=== PATIENT | female | born 1990 | race African-American/Black ===

== ENCOUNTER 2020-11-25 19:55 | Inpatient (IN) | payer BC, OTHER, SELFPAY ==
[2020-11-25] VITALS (47 sets, daily range): BP systolic 88–128; BP diastolic 45–85; PULSE 60–159; TEMP 37–37.1; O2SAT 97–100; BMI 32.8
[2020-11-25] MEDS: LACTATED RINGERS 1,000 ML 125 ML IV CONT ×3 (21:02→23:13)
[2020-11-25 21:12] LABS: Basophils Percent Auto 0.2 % (0.2-1.2); Eosinophils Percent Auto 0.5 % (0-4.4); Hematocrit 37.7 % (37.0-47.0); Hemoglobin 12.9 g/dL (12.0-15.0); Immature Granulocyte Absolute 0.04 K/mm3 (0.00-0.031); Immature Granulocyte Percent A 0.5 % (0-0.5); Mean Corpuscular HGB Conc 34.2 g/dl (32-36); Mean Corpuscular Hemoglobin 31.7 pg (26-34); Mean Corpuscular Volume 92.6 fl (80-100); Mean Platelet Volume 8.9 fl (7.4-10.4); Monocytes Absolute Auto 0.5 K/mm3 (0.1-0.6); Monocytes Percent Auto 6.3 % (2.6-8.5); Neutrophils Absolute Auto 6.1 K/mm3 (1.3-6.7); Neutrophils Percent Auto 71.5 % (45.5-73.1); Platelet Count Result 272 k/mm3 (150-375); Red Blood Count 4.07 M/mm3 (4.2-5.4); Red Cell Distribution Width 13.4 % (11.5-14.5); White Blood Count 8.6 K/mm3 (4.5-10.0)
[2020-11-25] MEDS: fentaNYL CITRATE INJ (*CRX) 100 MCG/2 ML VIAL 50 MCG IV PUSH (21:47)
--- NOTE | 2020-11-25 21:58 | WPDANESEPP ---
Anes - Eval Pre Procedure Procedure: Labor epidural Date/Time: 11/25/20 21:58 Surgeon: Mimi Preop Diagnosis: Abd pain with contractions Pre Op Diagnosis: CXN Patient Data Age: 30 Gender: F Height: 5 ft 3 in Weight: 84 kg Last Vital Signs Pulse 86 11/25/20 21:46 BP 120/71 11/25/20 21:46 Allergies Allergy/AdvReac Type Severity Reaction Status Date / Time No Known Allergies Allergy Verified 11/06/20 15:32 Home Medications Medication Instructions Recorded Confirmed Type Vitamin D2 11/06/20 History docusate sodium [Colace] 100 mg PO DAILY 11/06/20 11/06/20 History ferrous sulfate 11/06/20 History prenat.vits,jill,cye-ihfe-bumya 1 tablet PO DAILY 11/06/20 11/06/20 History [ #2] valacyclovir [Valtrex] 500 mg PO DAILY 11/06/20 11/06/20 History Laboratory Tests 11/25/20 11/25/20 11/25/20 21:00 21:00 21:00 WBC 8.6 K/mm3 K/mm3 (4.5-10.0) RBC 4.07 M/mm3 L M/mm3 (4.2-5.4) Hgb 12.9 g/dL g/dL (12.0-15.0) Hct 37.7 % % (37.0-47.0) MCV 92.6 fl fl (80-100) MCH 31.7 pg pg (26-34) MCHC 34.2 g/dl g/dl (32-36) RDW 13.4 % % (11.5-14.5) Plt Count 272 k/mm3 k/mm3 (150-375) MPV 8.9 fl fl (7.4-10.4) Immature Gran % (Auto) 0.5 % % (0-0.5) Neut % (Auto) 71.5 % % (45.5-73.1) Lymph % (Auto) 21.0 % % (18.3-44.2) [place] % (Auto) 6.3 % % (2.6-8.5) Eos % (Auto) 0.5 % % (0-4.4) Baso % (Auto) 0.2 % % (0.2-1.2) Lymph # (Auto) 1.80 K/mm3 K/mm3 (0.9-3.2) [place] # (Auto) 0.5 K/mm3 K/mm3 (0.1-0.6) Eos # (Auto) 0.0 K/mm3 K/mm3 (0-0.3) Baso # (Auto) 0.0 K/mm3 K/mm3 (0.0-0.1) Abs Immat Gran (auto) 0.04 K/mm3 H K/mm3 (0.00-0.031) Absolute Neuts (auto) 6.1 K/mm3 K/mm3 (1.3-6.7) Absolute Nucleated RBC 0.0 K/mm3 K/mm3 (0.0-0.012) Nucleated RBC % 0.0 % % (0.0-0.2) RPR Pending Blood Type Pending Antibody Screen Pending Patient hx anesthesia problems: none Family hx anesthesia problems: none PMFSH Past Medical History Medical History History of smoking Overweight (BMI 25.0-29.9) and not yet delivered Family History Family History Mother GERD (gastroesophageal reflux disease) Hypertension Grandparent Hypertension Social History Social History Years smoked: 9 Smoking status: Former smoker Tobacco type: cigarettes Smoking end date: 03/21/20 Substance use: never Spiritual care concerns: No Exam Day of Procedure 11/25/20 21:58 Patient weight: overweight Airway: Mallampati scale class II Neurological: alert and oriented
--- NOTE | 2020-11-25 23:40 | PM.IMHP ---
H&P: HPI History of Present Illness Date/Time: 11/25/20 23:40 Chief Complaint: contractions Narrative: Geraldine Lee is a 30 year old female @ 39 weeks presented to Labor and delivery with contractions and spontaneous rupture membranes with meconium stained fluid. complicated by prior csection and incompetent cervix s/p a cerclage. Internal monitors were placed. Patient had decel with lates. [facility] Past Medical History Medical History (Updated 11/25/20 @ 23:47 by Magdiel Le MD) History of smoking Non-reassuring heart tones complicating , antepartum Overweight (BMI 25.0-29.9) and not yet delivered Surgical History Surgical History (Updated 11/25/20 @ 23:47 by Magdiel Le MD) Desires (vaginal after ) trial Family History Family History Mother GERD (gastroesophageal reflux disease) Hypertension Grandparent Hypertension Social History Social History Years smoked: 9 Smoking status: Former smoker Tobacco type: cigarettes Smoking end date: 03/21/20 Substance use: never Spiritual care concerns: No Meds Home Medications and Allergies Home Medications Medication Instructions Recorded Confirmed Type Vitamin D2 11/06/20 History docusate sodium [Colace] 100 mg PO DAILY 11/06/20 11/06/20 History ferrous sulfate 11/06/20 History prenat.vits,jill,ymi-dmsg-vjdgz 1 tablet PO DAILY 11/06/20 11/06/20 History [ #2] valacyclovir [Valtrex] 500 mg PO DAILY 11/06/20 11/06/20 History Allergies Allergy/AdvReac Type Severity Reaction Status Date / Time No Known Allergies Allergy Verified 11/06/20 15:32 Vital Signs Vital Signs - 24 hr 11/25/20 20:16 11/25/20 20:31 11/25/20 20:46 Pulse Rate 76 84 83 Blood Pressure 110/59 L 109/64 114/72 Pulse Oximetry 11/25/20 21:01 11/25/20 21:31 11/25/20 21:46 Pulse Rate 71 60 86 Blood Pressure 92/76 L 95/67 L 120/71 Pulse Oximetry 11/25/20 22:00 11/25/20 22:01 11/25/20 22:05 Pulse Rate 77 Blood Pressure 128/85 Pulse Oximetry 99 100 11/25/20 22:07 11/25/20 22:08 11/25/20 22:09 Pulse Rate 78 81 75 Blood Pressure 118/71 108/79 112/68 Pulse Oximetry 11/25/20 22:10 11/25/20 22:11 11/25/20 22:13 Pulse Rate 78 82 Blood Pressure 111/67 116/80 Pulse Oximetry 100 11/25/20 22:15 11/25/20 22:17 11/25/20 22:19 Pulse Rate 74 70 70 Blood Pressure 114/62 111/54 L 101/56 L Pulse Oximetry 100 11/25/20 22:20 11/25/20 22:21 11/25/20 22:23 Pulse Rate 78 77 Blood Pressure 111/53 L 101/52 L Pulse Oximetry 100 11/25/20 22:25 11/25/20 22:27 11/25/20 22:29 Pulse Rate 83 81 83 Blood Pressure 106/65 111/54 L 104/58 L Pulse Oximetry 100 11/25/20 22:30 11/25/20 22:31 11/25/20 22:34 Pulse Rate 69 90 Blood Pressure 100/52 L 98/48 L Pulse Oximetry 100 11/25/20 22:35 11/25/20 22:37 11/25/20 22:39 Pulse Rate 71 70 70 Blood Pressure 98/49 L 106/62 109/45 L Pulse Oximetry 100 11/25/20 22:40 11/25/20 22:45 11/25/20 22:46 Pulse Rate 159 H Blood Pressure 110/70 Pulse Oximetry 100 100 11/25/20 22:50 11/25/20 22:55 11/25/20 23:00 Pulse Rate Blood Pressure Pulse Oximetry 100 100 99 11/25/20 23:01 11/25/20 23:05 11/25/20 23:10 Pulse Rate 68 Blood Pressure 109/63 Pulse Oximetry 100 98 11/25/20 23:15 11/25/20 23:16 11/25/20 23:20 Pulse Rate 68 Blood Pressure 111/65 Pulse Oximetry 100 99 11/25/20 23:25 11/25/20 23:27 11/25/20 23:31 Pulse Rate 81 Blood Pressure 88/57 L Pulse Oximetry 100 97 11/25/20 23:32 11/25/20 23:37 Pulse Rate Blood Pressure Pulse Oximetry 99 100 Exam GI: Other: soft and gravid heart tones 140 reactive with moderate variability decels x 5 mins to 90s with return to baseline. cervix 5 cm/70/-2 vertex H&P: Resu
[2020-11-25] MEDS: ceFAZolin 2 GM/D5W 50 ML 2 GM/50 ML BAG IVPB (23:55)
[2020-11-26] VITALS (53 sets, daily range): BP systolic 83–189; BP diastolic 41–137; PULSE 60–240; RESP 12–18; TEMP 36.3–36.8; O2SAT 89–100
--- NOTE | 2020-11-26 00:50 | PM.OBPRVD ---
OB - Delivery Note Procedure Delivery date: 11/26/20 Procedure: Procedures Operation Date: 11/25/20 23:40 <No data on this case meets the specified criteria> events: Previous and Meconium Stained Fluid Intrapartal events: Ceph-Pelvic Disproportion, Intolerance and Deceleration Delivery monitor: external FHT, external uterine, internal FHT and internal uterine Route of delivery: Quantitative Blood Loss (ml): 380 Anesthesia type: Epidural Disposition: PACU Baby Date of : 11/26/20 Weeks of gestation at delivery: 38 gender: Male presentation: vertex position: Right Occiput Posterior Placenta delivery description: Spontaneous cord vessel description: 3 Vessels score one minute: 8 score five minutes: 9
--- NOTE | 2020-11-26 00:54 | PM.PROC ---
Procedure Note - Detailed Date of procedure: 11/26/20 Pre-op diagnosis: CXN Post-op diagnosis: other (NRFHT) Procedure performed: rltcs Description of procedure: Patient was taken to the operating room with IV running. She was prepped and draped in a normal sterile fashion after epidural was found to be adequate. A Pfannenstiel skin incision was made with a scalpel carried down to the underlying layer of fascia. The fascial incision was then extended bilaterally with Fang scissors. The superior aspect of the incision was grasped with Olya clamps elevated and dissected off the rectus muscles. The inferior aspect of the incision was grasped with Olya clamps elevated and dissected off the rectus muscles. The rectus muscles were in the midline prior to proceeding to the peritoneum there was a rectal area bleeding that was suture ligated with 0 Vicryl suture. The peritoneum was entered bluntly bladder blade was inserted vesicouterine peritoneum was grasped with the PK and entered sharply with the Metzenbaum scissors and the bladder flap was created digitally. Bladder blade was reinserted and lower uterine segment was incised with a transverse fashion with the scalpel. head was delivered atraumatically the remainder of the fetus was delivered the cord was clamped and cut. and the fetus was handed off to the waiting nurse. Cord blood and cord gases were obtained. The placenta delivered spontaneously. The uterus was exteriorized and cleared of all clots and debris. Uterine incision was closed 0 Monocryl in a running locked fashion a 2nd layer the same suture was used to imbricate this incision on the patient's right corner of the incision and a [id number] stitch was placed for hemostasis. The uterus was returned to the abdomen the gutters were cleared of all clots and debris and irrigated copiously. The uterine incision was covered in Interceed and T fashion. The muscles were re-examined for hemostasis the fascia was closed with 0-Vicryl in a running fashion. Subcutaneous tissue was irrigated and closed with 0 plain gut and the skin was closed with 4-0 Vicryl on a Kenneth needle patient received precancer Ancef prior to skin incision. Anesthesia: spinal Surgeon: Magdiel Le MD Estimated blood loss (mL): 380 Urine output (mL): 200 Drains: Yes Packing: No Pathology: yes Complications: None Condition: stable Disposition: PACU Findings: male in vertex ROP meconium stained fluid.
[2020-11-26] MEDS: KETOROLAC 30 MG/ML VIAL (*BKC) IV PUSH (01:59)
[2020-11-26] MEDS: OXYTOCIN 30 UNITS/NS 500 ML 30 UNITS/500 ML BAG 125 UNITS IV CONT (02:03)
[2020-11-26] MEDS: fentaNYL CITRATE INJ (*CRX) 100 MCG/2 ML VIAL 25 MCG IV PUSH (02:40)
[2020-11-26] MEDS: HYDROcodone/acetaminophen (*CRX) 5-325 MG TABLET 1 TAB PO (03:59)
[2020-11-26] MEDS: KCL 20 MEQ/D5/0.45% SOD CHL 1,000 ML 125 ML IV CONT (06:35)
--- NOTE | 2020-11-26 07:13 | WPDANLDPN2 ---
Anes-Prog Note L&D Date/Time: 11/26/20 07:13 Comfortable throughout: section Neuraxial method: epidural Epidural/Spinal procedure site: clean & non-tender Neuro status: Neuro function grossly intact. patient has yet to get up to walk. moving all extremities with no deficits. Cardiovascular status: normal Respiratory status: normal Airway patency: baseline Mental status: baseline Post-Op hydration status: normal (catheter still in place) Vital Signs: Last Vital Signs Temp 36.5 C 11/26/20 06:04 Pulse 67 11/26/20 06:04 Resp 16 11/26/20 06:04 BP 114/68 11/26/20 06:04 Pulse Ox 100 11/26/20 06:04 Pain score (VAS): 3 I/O: Intake & Output 11/25/20 11/25/20 11/26/20 15:59 23:59 07:59 Intake Total 2000 Output Total 405 Balance 2000 -405 Post-procedural complaints: none Patient feedback: Patient satisfied with anesthetic care.
--- NOTE | 2020-11-26 07:15 | WPDANLDNPN2 ---
Anes-Prog Note L&D-Neuraxial Date/Time: 11/26/20 07:15 Neuraxial medications: epidural PF morphine Opiod-related complaints: none Patient feedback: Patient satisfied with post-operative pain management.
[2020-11-26] MEDS: HYDROcodone/acetaminophen (*CRX) 10-325 MG TABLET 1 TAB PO ×4 (07:16→20:42)
[2020-11-26 09:12] LABS: Rapid Plasma Reagin Non-Reactive (NonReactive)
[2020-11-26] MEDS: MULTIVIT/MIN/PREN/FOL AC/IRON TABLET 1 TAB PO (10:41)
[2020-11-26] MEDS: valACYclovir HCL 500 MG TABLET PO (10:41)
[2020-11-26] MEDS: DOCUSATE SODIUM 100 MG CAPSULE PO ×2 (10:42→18:04)
--- NOTE | 2020-11-26 11:00 | PC.NURSE ---
Consulted with patient, reviewed feeding cues, frequencies, duration of feedings, feeding elimination flow sheet, and signs of adequate intake. Demonstrated stimulation techniques to wake for feeding. Assisted with to breast. Reviewed positioning/alignment, holding breast and asymmetrical latch on. was able to latch correctly. Infant nursed eagerly, with steady draws and frequent swallowing noted. Reviewed signs of a correct latch, effective nursing and suck swallow ratio. was able to maintain latch without discomfort to mother. Nipple care reviewed. Instructed mother to call out for RN assistance if she is unable to latch for feeding or she has discomfort with nursing. Instructed feeding should be initiated three hours from start of last feeding or if feeding cues are noted before. Mother voiced understanding of information shared.
[2020-11-26] MEDS: IBUPROFEN 600 MG TABLET PO ×2 (14:50→20:42)
[2020-11-27] MEDS: HYDROcodone/acetaminophen (*CRX) 10-325 MG TABLET 1 TAB PO ×4 (00:33→14:13)
[2020-11-27] MEDS: IBUPROFEN 600 MG TABLET PO ×3 (04:00→18:44)
[2020-11-27 05:14] LABS: Basophils Percent Auto 0.3 % (0.2-1.2); Eosinophils Absolute Auto 0.1 K/mm3 (0-0.3); Eosinophils Percent Auto 0.8 % (0-4.4); Hematocrit 35.9 % (37.0-47.0); Immature Granulocyte Absolute 0.06 K/mm3 (0.00-0.031); Immature Granulocyte Percent A 0.5 % (0-0.5); Lymphocytes Absolute Auto 2.16 K/mm3 (0.9-3.2); Lymphocytes Percent Auto 18.4 % (18.3-44.2); Mean Corpuscular HGB Conc 33.4 g/dl (32-36); Mean Corpuscular Hemoglobin 31.9 pg (26-34); Mean Corpuscular Volume 95.5 fl (80-100); Mean Platelet Volume 8.7 fl (7.4-10.4); Monocytes Absolute Auto 0.8 K/mm3 (0.1-0.6); Monocytes Percent Auto 6.9 % (2.6-8.5); Neutrophils Absolute Auto 8.6 K/mm3 (1.3-6.7); Neutrophils Percent Auto 73.1 % (45.5-73.1); Platelet Count Result 239 k/mm3 (150-375); Red Blood Count 3.76 M/mm3 (4.2-5.4); Red Cell Distribution Width 13.6 % (11.5-14.5); White Blood Count 11.7 K/mm3 (4.5-10.0)
--- NOTE | 2020-11-27 05:18 | PM.OBPNVD ---
OB - PN: Subj Subjective Date/time seen: 11/27/20 05:18 Patient comments: no complaints and pain well controlled baby status: doing well OB - PN: Obj Data Labs CBC & Chem 7: 11/25/20 21:00 Labs: Laboratory Results - last 24 hr 11/25/20 21:00 RPR Non-reactive OB - PN A/P Plan day: 1 Plan: routine care Time Spent With Patient Time: Total time spent is greater than 50% in coordination of care (as documented) at patient's floor/unit and/or counseling patient: Exam Narrative: Exam Narrative: inc c/d/i : Bimanual exam- vagina & uterus: other (Uterus firm, nt @U)
[2020-11-27] MEDS: DOCUSATE SODIUM 100 MG CAPSULE PO ×2 (07:29→18:44)
[2020-11-27] MEDS: MULTIVIT/MIN/PREN/FOL AC/IRON TABLET 1 TAB PO (07:29)
[2020-11-27] MEDS: valACYclovir HCL 500 MG TABLET PO (07:29)
[2020-11-27 09:20] VITALS: BP 90/49; PULSE 78; RESP 18; TEMP 36.7; O2SAT 95
[2020-11-27] MEDS: HYDROcodone/acetaminophen (*CRX) 5-325 MG TABLET 1 TAB PO ×3 (11:06→22:40)
[2020-11-27 20:20] VITALS: BP 125/75; PULSE 93; RESP 18; TEMP 36.9; O2SAT 98
[2020-11-28] MEDS: HYDROcodone/acetaminophen (*CRX) 10-325 MG TABLET 1 TAB PO ×3 (02:16→18:03)
[2020-11-28] MEDS: IBUPROFEN 600 MG TABLET PO ×3 (05:35→22:19)
[2020-11-28] MEDS: HYDROcodone/acetaminophen (*CRX) 5-325 MG TABLET 1 TAB PO ×3 (05:35→22:19)
[2020-11-28 07:40] VITALS: BP 102/60; PULSE 84; RESP 18; TEMP 37.1; O2SAT 99
[2020-11-28] MEDS: valACYclovir HCL 500 MG TABLET PO (09:36)
[2020-11-28] MEDS: DOCUSATE SODIUM 100 MG CAPSULE PO ×2 (09:36→18:03)
[2020-11-28] MEDS: MULTIVIT/MIN/PREN/FOL AC/IRON TABLET 1 TAB PO (09:36)
[2020-11-28] MEDS: SIMETHICONE 80 MG TAB.CHEW PO (14:43)
--- NOTE | 2020-11-28 18:27 | PM.OBPNVD ---
OB - PN: Subj Subjective Date/time seen: 11/28/20 18:27 doing okay no complaints OB - PN: Obj Data Labs CBC & Chem 7: 11/27/20 05:00 OB - PN A/P Assessment and Plan (1) S/P repeat low transverse : Code(s): Z98.891 - History of uterine scar from previous surgery Status: Acute Assessment and Plan: continue with pp care. Time Spent With Patient Time: Total time spent is greater than 50% in coordination of care (as documented) at patient's floor/unit and/or counseling patient: Exam GI: Other: inc c/d/i ff below umbilicus
[2020-11-28 19:55] VITALS: BP 100/60; PULSE 86; RESP 16; TEMP 36.3; O2SAT 97
[2020-11-29] MEDS: HYDROcodone/acetaminophen (*CRX) 10-325 MG TABLET 1 TAB PO (05:16)
--- NOTE | 2020-11-29 06:40 | PM.OBPNVD ---
OB - PN: Subj Subjective Date/time seen: 11/29/20 06:40 patient reports legs a little heavy otherwise okay pain controlled. OB - PN: Obj Data Labs CBC & Chem 7: 11/27/20 05:00 OB - PN A/P Assessment and Plan (1) S/P repeat low transverse : Code(s): Z98.891 - History of uterine scar from previous surgery Status: Acute Assessment and Plan: d/c home. Time Spent With Patient Time: Total time spent is greater than 50% in coordination of care (as documented) at patient's floor/unit and/or counseling patient: Exam GI: Other: ff below umbilicus
--- NOTE | 2020-11-29 06:43 | PM.OBDSVD ---
DS: Admitting Diagnosis Admitting Diagnosis Admitting Diagnosis: labor OB - DS: Summary OB Procedures : Cerclage and Ultrasound OB Procedures Intrapartum: OB Procedures: : None Peripartum Data Procedures: Procedures Operation Date: 11/25/20 23:40 Actual Procedures Side Surgeon p Section Magdiel Le MD Time Spent with Patient Time attestation: Total time spent providing and/or coordinating discharge services: DS: Data Data Completed and Pending Completed studies during hospitalization: Pending at discharge 11/26/20 00:11 Surgical [PTH] Routine Discharge Plan Discharge Attending physician on discharge: Magdiel Le Discharging Clinician: Magdile Le Patient Disposition: Home, Self-Care Activity: may shower and pelvic rest Diet: regular Wound Care Instructions: incision open to air Patient Instructions: Antibiotic Form Stand Alone Forms: General Discharge Information Follow-up/Referrals: Magdiel Le MD [Physician] - Discharge Medications: New hydrocodone-acetaminophen 5-325 mg Tablet 1 tablet PO Q3H PRN (Reason: Moderate Pain (4-6)) Qty: 20 RF: 0 Continued valacyclovir [Valtrex] 500 mg Tablet 500 mg PO DAILY RF: 0 docusate sodium [Colace] 100 mg Capsule 100 mg PO DAILY RF: 0 #2 Tablet 1 tablet PO DAILY RF: 0 ferrous sulfate RF: 0 Discontinued Vitamin D2 RF: 0 Date of admission: 11/25/20 19:55 Primary Care Provider: Cheo,Kallie Admitting Provider: Magdiel Le Attending physician on admission: Magdiel Le Condition: Stable
[2020-11-29 09:00] VITALS: BP 115/67; PULSE 77; RESP 18; TEMP 37.1; O2SAT 100
[2020-11-29] MEDS: MULTIVIT/MIN/PREN/FOL AC/IRON TABLET 1 TAB PO (09:27)
[2020-11-29] MEDS: IBUPROFEN 600 MG TABLET PO (09:27)
[2020-11-29] MEDS: DOCUSATE SODIUM 100 MG CAPSULE PO (09:27)
[2020-11-29] MEDS: valACYclovir HCL 500 MG TABLET PO (09:27)
[2020-11-29] MEDS: HYDROcodone/acetaminophen (*CRX) 5-325 MG TABLET 1 TAB PO (09:28)
[2020-11-30 09:55] VITALS: BP 108/74; PULSE 72; RESP 20; TEMP 37; O2SAT 100
== END 2020-11-29 10:57 | disposition home or self-care (01) | DRG 787 ==
LOC: ANHLDR 23:19 → ANHOB2 11-26 03:10
PROVIDERS: Admitting Provider Obstetrics & Gynecology; PCP Family Medicine; Visit Provider Obstetrics & Gynecology
PROC: (CPT 59514; principal; 2020-11-25 23:40)
DX: O34.211 Maternal care for low transverse scar from previous cesarean delivery (principal); O98.32 Other infections with a predominantly sexual mode of transmission complicating childbirth; Z37.0 Single live birth; Z3A.38 38 weeks gestation of pregnancy; O36.8330 Maternal care for abnormalities of the fetal heart rate or rhythm, third trimester, not applicable or unspecified; O77.0 Labor and delivery complicated by meconium in amniotic fluid; O65.9 Obstructed labor due to maternal pelvic abnormality, unspecified; B00.9 Herpesviral infection, unspecified
CPT/HCPCS: 36415; 85025; 86592; 86850; 86900; 86901; 88307; A9270; J0690; J1885; J2274; J2370; J2405; J2590; J2795; J3010; J3480; J7120